=== PATIENT | male | born 1995 | race Two or more races ===

== ENCOUNTER 2024-06-18 11:48 | Emergency (ER) | payer MEDICAID ==
[~2024-06-18] VITALS: Ht 172.7 cm; Wt 105.0 kg
[2024-06-18 11:51] VITALS: O2SAT 98
[2024-06-18 12:41] LABS: BASOPHILS % 0.7 % (0.0-2.0); EOSINOPHILS % 2.9 % (0.0-5.0); HEMATOCRIT. 41.3 % (42.0-52.0); HEMOGLOBIN. 13.8 g/dL (14.0-18.0); LYMPHOCYTES % 21.4 % (20.0-50.0); MEAN CORPUSCULAR HEMOGLOBIN 29.9 pg (28.0-32.0); MEAN CORPUSCULAR HGB CONC 33.4 g/dL (31.0-37.0); MEAN CORPUSCULAR VOLUME 89.5 fL (80.0-94.0); MEAN PLATELET VOLUME 7.5 fl (7.4-10.4); PLATELET 291 x1000/uL (130-400); RED BLOOD CELL COUNT 4.62 mill/uL (4.7-6.1); RED CELL DISTRIBUTION WIDTH 14.3 % (11.6-14.6); WHITE BLOOD COUNT 9.9 x1000/uL (4.5-11.0)
[2024-06-18 12:45] LABS: CHLORIDE 105 mEq/L (98-107); POTASSIUM 3.8 mEq/L (3.5-5.1); SODIUM 139 mEq/L (136-145)
[2024-06-18 12:46] LABS: CARBON DIOXIDE 30 mEq/L (21-32)
[2024-06-18 12:47] LABS: CALCIUM 9.2 mg/dL (8.7-10.4)
[2024-06-18 12:51] LABS: CREATININE 0.8 mg/dL (0.6-1.3); GLUCOSE 151 mg/dL (70-105)
[2024-06-18 12:52] LABS: UREA NITROGEN BLOOD 5 mg/dL (9-23)
[2024-06-18 12:53] LABS: ALANINE AMINOTRANSFERASE 50 IU/L (10-49); ALBUMIN 4.3 g/dL (3.2-4.8); ASPARTATE AMINOTRANSFERASE 32 IU/L (<34)
[2024-06-18 12:54] LABS: BILIRUBIN DIRECT 0.3 mg/dL (<=3.0); BILIRUBIN TOTAL 0.9 mg/dL (0.1-1.0); PROTEIN TOTAL 7.3 g/dL (6.0-8.3)
[2024-06-18 12:57] LABS: CLARITY URINE CLEAR (CLEAR); COLOR URINE YELLOW (YELLOW); GLUCOSE URINE NEGATIVE (NEGATIVE); KETONES URINE NEGATIVE (NEGATIVE); LEUKOCYTE ESTERASE URINE NEGATIVE (NEGATIVE); NITRITE URINE NEGATIVE (NEGATIVE); OCCULT BLOOD URINE NEGATIVE (NEGATIVE); PROTEIN URINE 2+ (NEGATIVE); SPECIFIC GRAVITY URINE 1.014 (1.005-1.030)
[2024-06-18 13:37] LABS: BACTERIA URINE NONE SEEN; RBC URINE NONE SEEN /hpf (0-2); SQUAMOUS EPITHELIAL CELL URINE RARE /lpf (RARE/1+); WBC URINE 0-2 /hpf (0-2); YEAST URINE NONE SEEN
[2024-06-18] MEDS: IBUPROFEN 600MG TABLET PO ONE (13:55)
[2024-06-18] MEDS ORDERED: IBUP-2028 MT (13:57)
[2024-06-18] MEDS ORDERED: AMOX1TAB16 MT (13:57)
[2024-06-18 14:18] VITALS: BP 149/67; PULSE 91; RESP 22; TEMP 98.1
== END 2024-06-18 14:31 | disposition home or self-care (01) ==
LOC: ER 12:04
DX: K57.90 Diverticulosis of intestine, part unspecified, without perforation or abscess without bleeding (principal); R10.12 Left upper quadrant pain; R10.32 Left lower quadrant pain
CPT/HCPCS: 80076; 80048; 81003; 83690; 85025; 36415; 71045; 74176; 99284; Z7610